=== PATIENT | male | born 1975 | race Caucasian/White ===

== ENCOUNTER 2024-10-27 08:15 | Emergency (ER) | payer MEDICAID, OTHER ==
[~2024-10-27] VITALS: Ht 175.3 cm; Wt 89.8 kg
[2024-10-27 08:41] VITALS: BP 132/80; PULSE 63; RESP 18; O2SAT 96
--- NOTE | 2024-10-27 10:05 | Physician Documentation ---
History of Present Illness ~ Chief Complaint: Abscess Stated Complaint: ARM PAIN/INFECTION Time Seen by MD: 09:46 Primary Medical Doctor: None HPI Patient is seen today with complaints of redness and swelling increasing over last few days of his right forearm ulnar aspect midshaft. Patient states he has skills and some purulent material from the lesion. Patient denies any fever or chills or nausea, vomiting, diarrhea. Patient has no other concern or complaint at this time. Medication Reconciliation Allergies: Coded Allergies: niacin (Verified Allergy, Unknown, 10/27/24) Past Medical History Past Medical History: Hypertension, Anxiety, Depression Past Surgical History: no surgical history, other Alcohol Use: Occasionally Drug Use: methamphetamine Lives with: Other Lives In: Other Occupation: unemployed Review of Systems Constitutional: Denies: chills, fever, weakness Eyes: Denies: pain, blurred vision ENT: Denies: ear pain, nose pain, throat pain, mouth pain Respiratory: Denies: cough, shortness of breath Cardiovascular: Denies: chest pain, palpitations Gastrointestinal: Denies: abdominal pain, nausea, vomiting Genitourinary: Denies: burning, dysuria Male Genitalia: Denies: penile discharge, testicular pain Neurological: Denies: headache, dizziness Musculoskeletal: Denies: pain, swelling Integumentary: Denies: rash, lesions Allergic/Immunologic: Denies: hives, itching Hematologic/Lymphatic: Denies: no symptoms reported Psychiatric: Denies: depression, anxiety Physical Exam Vital Signs: Temperature: 98.1, Source: Temporal, Heart Rate: 63, Respiratory Rate: 18, BP: 132/80, Pulse Oximetry: 96, Weight: 89.790 Physical Exam General: Awake and Alert, no acute distress. HEENT: Conjunctiva pink, Sclera clear, Mucus Membranes moist. Neck: Supple without masses and tenderness. Resp: Unlabored. Lungs clear to auscultation bilaterally. Heart: Regular Rate and rhythm, normal S1 and S2 without murmur, rub or gallop. Extremities: No cyanosis,clubbing or edema. Skin: Patient on exam does have erythematous and indurated skin lesion with no palpable fluctuant mass on his right forearm ulnar aspect midshaft. Lesion measures a proximally 2 cm in diameter. I do not appreciate any purulent drainage currently. The area is tender to palpation. Progress Results/Orders Results/Orders Vital Signs 10/27/24 08:41 Temp 98.1 Pulse 63 Resp 18 B/P (MAP) 132/80 Pulse Ox 96 Medical Decision Making Findings Patient is seen today with complaints of redness and swelling increasing over last few days of his right forearm ulnar aspect midshaft. Patient states he has skills and some purulent material from the lesion. Patient denies any fever or chills or nausea, vomiting, diarrhea. Patient has no other concern or complaint at this time. Patient was given prescription of Bactrim DS one tab twice a day to be taken with food sent to patient's pharmacy. Patient voiced understanding. Shared decision-making utilized today. Patient will follow up with primary care in 2-5 days if no better as needed sooner. Return to ED with any worsening, concerning or changing symptoms. Departure Disposition: 01 HOME / SELF CARE / HOMELESS Impression: Primary Impression: Abscess Condition: Stable Discharge Instructions: Skin Abscess, [id number] Additional Instructions: Patient was given prescription of Bactrim DS one tab twice a day to be taken with food sent to patient's pharmacy. Patient voiced understanding. Shared decision-making utilized today. Patient will follow up with primary care in 2-5 days if no better as needed sooner. Return to ED with any worsening, concerning or changing symptoms. Referrals: NO PRIMARY CARE PROVIDER (PCP) Prescriptions Sulfamethoxazole/Trimethoprim (Bactrim Ds Tablet) 800 Mg-160 Mg Tablet 1 TAB PO Q12H for 10 Days, #20 TAB Prov: SALVADOR SHELLEY 10/27/24 Signature Scribe Signature: No scribe Attestation: No scribe SALVADOR SHELLEY Oct 27, 2024 10:05
[2024-10-27] MEDS ORDERED: SULF1TAB49 PO (10:16)
[2024-10-27 10:30] VITALS: TEMP 98.1
== END 2024-10-27 10:32 | disposition home or self-care (01) ==
LOC: ER 08:16
DX: L02.413 Cutaneous abscess of right upper limb (principal); I10 Essential (primary) hypertension; F41.9 Anxiety disorder, unspecified; F32.A Depression, unspecified; F15.90 Other stimulant use, unspecified, uncomplicated
CPT/HCPCS: 99283; A6407; A6449

== ENCOUNTER 2024-10-30 12:02 | Emergency (ER) | payer MEDICAID, OTHER ==
[~2024-10-30] VITALS: Ht 177.8 cm; Wt 88.1 kg
[~2024-10-30 12:02] MED LIST: SULF1TAB49 PO
[2024-10-30 12:03] VITALS: BP 124/87; TEMP 97.7
[2024-10-30] MEDS: LIDOcaine 1% W/epiNEPHrine 1:100,000 20ml vial SQ ONE (12:20)
[2024-10-30] MEDS ORDERED: CEPH-585 PO (13:29)
--- NOTE | 2024-10-30 13:29 | Physician Documentation ---
History of Present Illness ~ Chief Complaint: Abscess Stated Complaint: R ARM INFECTION Time Seen by MD: 13:05 Primary Medical Doctor: None HPI 49-year-old male returns to the ED with a complaint of an abscess on his right forearm. States that he was treated with Bactrim do treat his abscess however he has had increased pain and swelling. Any fevers reports general malaise patient has a history of MRSA Day of Onset: Oct 30, 2024 Medication Reconciliation Allergies: Coded Allergies: niacin (Verified Allergy, Unknown, 10/27/24) Scheduled Sulfamethoxazole/Trimethoprim (Bactrim Ds Tablet), 1 TAB PO Q12H Past Medical History Past Medical History: Hypertension, Anxiety, Depression Past Surgical History: no surgical history, other Alcohol Use: Occasionally Drug Use: methamphetamine Lives with: Other Lives In: Other Occupation: unemployed Review of Systems All Other Systems at this time: Reviewed and Negative ROS As stated above in the HPI, otherwise all systems are reviewed and negative. Physical Exam Vital Signs: Temperature: 97.7, Source: Oral, Heart Rate: 86, Respiratory Rate: 16, BP: 124/87, Pulse Oximetry: 99, Weight: 88.100 Oxygen Flow Rate: 0 Physical Exam General: Alert, no apparent distress. Respiratory: Lungs clear, no respiratory distress. Extremities: Normal range of motion, no deformity. 3 cm abscess right forearm posterior aspect Neurologic: Oriented x4. Psychiatric: Normal mood and affect. Skin: Normal color, warm and dry. No edema, no ecchymosis. Procedures I & D Procedure : Anesthesia: Lidocaine Blade Size: 11 Prep/Supplies: betadine prep Incision: pus drained Tolerated Procedure Well?: yes, no complications Progress Results/Orders Results/Orders Orders - ALEXI WALLACE [employer]ION ASSEMBLER Laceration/I&D Tray Set Up (10/30/24 ) Completed Orders - ALEXI WALLACE [employer]SEMBLER Lidocaine 1% W/Epi 1:100,000 (Xylocaine (10/30/24 12:20) Vital Signs 10/30/24 12:03 Temp 97.7 Pulse 86 Resp 16 B/P (MAP) 124/87 Pulse Ox 99 O2 Flow Rate 0 Medical Decision Making Findings Performed an I and D on the right forearm. Notable purulent discharge was evident after an incision was made. Packing was not required at this time. Advised the patient to express wound daily until stopped producing purulent discharge Differential Dx:Considerations: Include: Abscess, Bacteremia, Cellulitis, Erys ipelas, Felon, Gas gangrene, Hidrademitis suppurativa, Impetigo, Lymphangitis, Osteromyelitis, Paronychia, Septicemia, Other Departure Disposition: HOME / SELF CARE / HOMELESS Impression: Primary Impression: Abscess Condition: Stable Discharge Instructions: Skin Abscess, [id number] Referrals: NO PRIMARY CARE PROVIDER (PCP) Prescriptions Cephalexin*Monohydrate* (Keflex*) 500 Mg Capsule 1 CAP PO QID, #40 CAP Prov: ALEXI WALLACE [employer]ION [employer]SEMBLER 10/30/24 Signature Scribe Signature: h Attestation: Scribed for Alexi Wallace [address] Bailiff by Alexi Wallace - DORI . 10/30/24 13:29 ALEXI WALLACE [employer] ASSEMBLER Oct 30, 2024 13:29
[2024-10-30 13:50] VITALS: PULSE 78; RESP 18; O2SAT 98
== END 2024-10-30 13:52 | disposition home or self-care (01) ==
LOC: ER 12:03
DX: L02.413 Cutaneous abscess of right upper limb (principal); I10 Essential (primary) hypertension; F41.9 Anxiety disorder, unspecified; F32.A Depression, unspecified; F15.90 Other stimulant use, unspecified, uncomplicated; Z56.0 Unemployment, unspecified; Z72.89 Other problems related to lifestyle; Z88.8 Allergy status to other drugs, medicaments and biological substances; Z79.899 Other long term (current) drug therapy
CPT/HCPCS: 10060; 99283; J3490; A6449